=== PATIENT | male | born 1945 | race Caucasian/White ===

== ENCOUNTER 2017-05-14 19:49 | Emergency (ER) | payer MEDICARE ==
[~2017-05-14] VITALS: Ht 177.8 cm; Wt 86.2 kg
[2017-05-14] MEDS ORDERED: PRAVACHOL20 MG PO (20:01)
[2017-05-14] MEDS ORDERED: AMLODIPINE BESY10 MG PO (20:02)
[2017-05-14] MEDS ORDERED: TRIAMTERENE-HC1 EAC2 PO (20:02)
[2017-05-14] MEDS ORDERED: BAYER CHEWABLE81 MG PO (20:03)
[2017-05-14] MEDS ORDERED: VITAMIN D2000 UNI1 PO (20:04)
[2017-05-14] MEDS ORDERED: IBUPROFEN 400400 M1 PO (20:04)
[2017-05-14 21:26] VITALS: BP 139/76
== END 2017-05-14 21:27 | disposition home or self-care (01) ==
LOC: M.ERS 19:49
DX: R04.0 Epistaxis (principal); I10 Essential (primary) hypertension; E78.5 Hyperlipidemia, unspecified; K64.9 Unspecified hemorrhoids; Z88.8 Allergy status to other drugs, medicaments and biological substances